=== PATIENT | male | born 1945 | race Caucasian/White ===

== ENCOUNTER 2016-10-06 09:49 | Inpatient (IN) | payer MEDICARE, OTHER ==
[~2016-10-06] VITALS: Ht 180.3 cm; Wt 116.6 kg
[~2016-10-06 09:49] MED LIST: ASPI-482 PO; FURO20TA3 PO; METO25TA9 PO; MULT1TAB52 PO; OLME20TA19 PO; OMEG300C PO; SIMV10TA3 PO; SPIR25TA3 PO; TAMS0.4C2 PO
[2016-10-06 12:07] VITALS: BP 155/79
[2016-10-06] MEDS ORDERED: BUTALB/APAP/CAFEIN 50/325/40MG TABLET. PO PRN (12:15)
[2016-10-06] MEDS ORDERED: MORPHINE SULFATE 4 MG/ML DISP.SYRIN. IV PRN (12:15)
[2016-10-06] MEDS ORDERED: SUMAtriptan SUCCINATE 25 MG TABLET PO PRN (12:15)
[2016-10-06] MEDS ORDERED: ASPIRIN ENTERIC COATED 81 MG TABLET.DR. PO SCH (12:30)
[2016-10-06] MEDS ORDERED: simvistatin (12:41)
[2016-10-06] MEDS ORDERED: GADOBUTROL 10 MMOL/10 ML VIAL IV ONE (14:30)
[2016-10-06] MEDS: LOSARTAN POTASSIUM 50 MG TABLET. PO SCH (14:52)
[2016-10-06] MEDS: METOPROLOL SUCC 24HR ER 25 MG TAB.ER.24H. PO SCH (14:52)
[2016-10-06] MEDS: SPIRONOLACTONE 25 MG TABLET PO SCH (14:53)
[2016-10-06] MEDS: TAMSULOSIN 0.4 MG CAP.ER.24H. PO SCH (14:53)
--- NOTE | 2016-10-06 14:54 | PDOC2 ---
NEUROLOGY CONSULT Date of Admission Date of Admission DATE: 10/06/16 TIME: 14:43 Reason for Consult Reason for Consult: Headache. CAD, s/p CABG. PR. HLD. 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 Obesity. RECOMMENDATIONS/PLAN: Brain MRI w/wo contrast. Continue ASA q am. Continue Zocor HS. Pain control. OT/PT. Discussed with his at bedside on 10/06/16. HISTORY OF THE PRESENT ILLNESS: 70-y-old male patient with Hx of old right cerebellar infarcts in 04/2015. He stated he had headaches at that time but headaches were resolved a few days later after his cerebellar stroke. He developed headaches again this time and not feeling well since last week per his . Due to increased headaches, he was hospitalized for further evaluation. PAST MEDICAL HISTORY: See above. PAST SURGERY HISTORY: S/P CABG ALLERGY: Reviewed. MEDICATIONS: Refer to MAR. FAMILY HISTORY: DM SOCIAL HISTORY: Denies current smoking, drinking, and illicit drug use. REVIEW OF SYSTEMS: Constitutional: No malnutrition, weight loss, night sweats, cachexia. Head: No traumatic brain or head injury. Skin: No edema, or rash. Ear: No infection, tinnitus. Eyes: No vision loss, color blindness Nose: No bleeding or purulent discharges. Neck: No injury, lymph note enlargement Cardiac: CAD, PR, s/p CABG, HLD. Pulmonary: URI GI: No melena, hematochezia Urinary/genital: UTI. Endocrinologic: No symptoms of gigantism, dwarf, hyperphasia, cousin face, craniofacial dysmorphism, polydactyly Skeletomuscular: generalized weakness Neurological: see HP. Psychiatric: Denies drug use/abuse. Otherwise, not [id number] review of systems. PHYSICAL EXAMINATION: General appearance is in subacute distress. HEENT: Normocephalic and nontraumatic. Eyes, nose, ears, and throat are unremarkable. Neck is supple. No lymphadenopathy. No crepitus. Cardiovascular: S1, S2, regular rate and rhythm. Pulmonary: Clear to auscultation bilaterally. Abdomen: Bowel sounds are positive. Extremities: No rash, lesions, or edema. No restriction of range of motion NEUROLOGICAL EXAMINATION: Alert. Oriented to time, place and person. PERRL. EOMI. CN: no focal findings. Muscle tone: within normal. Muscle strength: 5 DTR: 2- Plantar reflex: Flexor response bilaterally Gait: not examined in bed. Sensory exam: no abnormal findings. No cerebellar signs elicited. Current Medications Current Medications Current Medications Sumatriptan Succinate (Imitrex) 50 mg PRN Q2HR PRN PO MIGRAINE HEADACHE Last administered on 10/06/16t 12:56; Start 10/06/16 at 12:15 Acetaminophen/ Butalbital/ Caffeine (Fioricet) 1 tab PRN Q6HRS PRN PO MIGRAINE HEADACHE; Start 10/06/16 at 12:15 Morphine Sulfate 4 mg PRN Q2HR PRN IV PAIN; Start 10/06/16 at 12:15 Aspirin (Ecotrin) 81 mg DAILY PO ; Start 10/06/16 at 12:30 Metoprolol Succinate (Toprol Xl) 25 mg DAILY PO ; Start 10/06/16 at 12:30 Simvastatin (Zocor) 10 mg QHS PO ; Start 10/06/16 at 21:00 Spironolactone (Aldactone) 25 mg DAILY PO ; Start 10/06/16 at 12:30 Tamsulosin HCl (Flomax) 0.4 mg DAILY PO ; Start 10/06/16 at 12:30 Losartan Potassium (Cozaar) 50 mg DAILY PO ; Start 10/06/16 at 12:30 Gadobutrol (Gadavist) 9 mmol 1X ONCE IV Last administered on 10/06/16 14:25; Start 10/06/16 at 14:30; Stop 10/06/16 at 14:31; Status DC Active Scripts Active Reported [simvistatin] Fish Oil ([place]-3 Fatty Acids) 300 Mg Capsule 1,200 Mg PO DAILY Multivitamins (Multivitamin) 1 Each Tablet 1 Tab PO DAILY Tamsulosin Hcl 0.4 Mg Cap.er.24h 1 Cap PO DAILY Benicar (Olmesartan Medoxomil) 20 Mg Tablet 0.5 Tab PO DAILY Metoprolol Succinate ( Xl ) (Metoprolol Succinate) 25 Mg Tab.er.24h 1 Tab PO DAILY Furosemide 20 Mg Tablet 0.5 Tab PO DAILY Spironolactone 25 Mg Tablet 1 Tab PO DAILY Allergies Allergies: Coded Allergies: JEREMY Inhibitors (Verified Allergy, Unknown, 05/04/15) Uncoded Allergies: IV Contrast (Allergy, Unknown, 05/04/15) Vitals VITALS Vital Signs Date Time Temp Pulse Resp B/P (MAP) Pulse Ox O2 Delivery O2 Flow Rate FiO2 10/06/16 12:07 97.4 60 17 155/79 (104) 97 Room Air 97.4 ANYI DELGADO MD Oct 06, 2016 14:54
[2016-10-06 14:59] VITALS: BP 167/93
--- NOTE | 2016-10-06 15:25 | RAD ---
INDICATION: Stroke. Unsteady gait. Left-sided weakness. TECHNIQUE: Sagittal T1, axial T1, axial T2, axial FLAIR, axial T2 gradient, diffusion imaging with ADC map, postcontrast axial, and postcontrast coronal sequences are provided. 9 mL of intravenous Gadavist was administered without complication. Comparison is an MRI from May 05, 2015. There is also a CT from earlier today. FINDINGS: There is increased signal on diffusion imaging in the posterior medial right temporal lobe and occipital lobe with mild ADC correlate. Finding is concerning for an acute infarct measuring 2.8 x 1.1 cm in size. This is a change from prior exams. There is blooming artifact in this region, somewhat linear in orientation, more likely to be vascular than a hemorrhagic transformation given appearance on T2 and FLAIR imaging. This is probably a distal right posterior cerebral artery branch. There is an old right inferior cerebellar infarct. There is prominence of the ventricles and sulci. There is mild to moderate probable small vessel ischemic disease. There is no extra-axial fluid collection. There is no mass effect or midline shift. Cervicomedullary junction is unremarkable. Clival marrow signal is preserved. Central arterial flow voids are preserved. There is no pathologic enhancement. IMPRESSION: 1. Posterior right temporal / occipital acute infarct. 2. Linear blooming artifact in this region appears to correspond to a vessel on T2 and FLAIR imaging, presence of blooming artifact raises the possibility of thrombus within the distal right posterior cerebral artery as the cause of this infarct. 3. Brain parenchymal volume loss and probable small vessel ischemic disease. 4. Old right cerebellar infarct. This critical result of acute infarct was called to the patient's nurse, Lesley, at 1522 hours. Electronically signed by: Pepe Arce MD (10/06/2016 3:23 PM) [id number]
--- NOTE | 2016-10-06 15:40 | PDOC1 ---
History and Physical Date of Admission Date of Admission DATE: 10/06/16 TIME: 15:35 History of Present Illness History of Present Illness transfer from [place] [facility] this AM. pt seen 1300 here. Prior CVA, and today awoke with dizzyness and weakenss and vision loss in his left eye. He awoke with these problems, timeline unable to be established, out of t-PA window. CT there showed r occipital area concern for CVA, pt has prior CVA. Since this AM, he has worsening headache. Has hx of migrane, prior CVA possibly instigated by migrane, and now frontal throbbing headache. no nasuea, weakness is gone Past Medical History Cardiovascular: HTN CENTRAL NERVOUS SYSTEM: CVA Heme/Onc: No pertinent hx Hepatobiliary: No pertinent hx Psych: No pertinent hx Infectious disease: No pertinent hx Endocrine: Other (BPH) Social History Smoke: No ALCOHOL: heavy (at least 4/day) Drugs: None Current Medications Current Medications Current Medications Sumatriptan Succinate (Imitrex) 50 mg PRN Q2HR PRN PO MIGRAINE HEADACHE Last administered on 10/06/16 12:56; Start 10/06/16 at 12:15 Acetaminophen/ Butalbital/ Caffeine (Fioricet) 1 tab PRN Q6HRS PRN PO MIGRAINE HEADACHE; Start 10/06/16 at 12:15 Morphine Sulfate 4 mg PRN Q2HR PRN IV PAIN; Start 10/06/16 at 12:15 Aspirin (Ecotrin) 81 mg DAILY PO Last administered on 10/06/16 14:52; Start at 12:30; Stop 10/06/16 at 15:26; Status DC Metoprolol Succinate (Toprol Xl) 25 mg DAILY PO Last administered on 10/06/16 14:52; Start 10/06/16 at 12:30 Simvastatin (Zocor) 10 mg QHS PO ; Start 10/06/16 at 21:00 Spironolactone (Aldactone) 25 mg DAILY PO Last administered on 10/06/16 14:53 ; Start 10/06/16 at 12:30 Tamsulosin HCl (Flomax) 0.4 mg DAILY PO Last administered on 10/06/16 14:53; Start 10/06/16 at 12:30 Losartan Potassium (Cozaar) 50 mg DAILY PO Last administered on 10/06/16t 14:52 ; Start 10/06/16 at 12:30 Gadobutrol (Gadavist) 9 mmol 1X ONCE IV Last administered on 10/06/16 14:25; Start 10/06/16 at 14:30; Stop 10/06/16 at 14:31; Status DC Clopidogrel Bisulfate (Plavix) 75 mg DAILYWBKFT PO ; Start 10/06/16 at 17:00 Active Scripts Active Reported [simvistatin] Fish Oil ([place]-3 Fatty Acids) 300 Mg Capsule 1,200 Mg PO DAILY Multivitamins (Multivitamin) 1 Each Tablet 1 Tab PO DAILY Tamsulosin Hcl 0.4 Mg Cap.er.24h 1 Cap PO DAILY Benicar (Olmesartan Medoxomil) 20 Mg Tablet 0.5 Tab PO DAILY Metoprolol Succinate ( Xl ) (Metoprolol Succinate) 25 Mg Tab.er.24h 1 Tab PO DAILY Furosemide 20 Mg Tablet 0.5 Tab PO DAILY Spironolactone 25 Mg Tablet 1 Tab PO DAILY Allergies Allergies: Coded Allergies: JEREMY Inhibitors (Verified Allergy, Unknown, 05/04/15) Uncoded Allergies: IV Contrast (Allergy, Unknown, 05/04/15) ROS General: YES: Malaise, No: Chills, Night Sweats, Fatigue, Appetite, Other PSYCHOLOGICAL ROS: No: Anxiety, Behavioral Disorder, Concentration difficultie , Decreased libido, Depression, Disorientation, Hallucinations, Hostility, Irritablity, Memory difficulties, Mood Swings, Obsessive thoughts, Physical abuse, Sexual abuse, Sleep disturbances, Suicidal ideation, Other Eyes: No Blurry vision, No Decreased vision, No Double vision, No Dry eyes, No Excessive tearing, No Eye Pain, No Itchy Eyes, No Loss of vision, No Photophobia , No Scotomata, No Uses contacts, No Uses glasses, No Other HEENT: YES: Heacaches, No: Visual Changes, Hearing change, Nasal congestion, Nasal discharge, Oral lesions, Sinus pain, Sore Throat, Epistaxis, Sneezing, Snoring, Tinnitus, Vertigo, Vocal changes, Other Respiratory: No: Cough, Hemoptysis, Orthopnea, Pleuritic Pain, Shortness of breath, SOB with excertion, Sputum Changes, Stridor, Tachypnea, Wheezing, Other Cardiovascular: No Chest Pain, No Palpitations, No Orthopnea, No Paroxysmal Noc. Dyspnea, No Edema, No Lt Headedness, No Other Gastrointestinal: No Nausea, No Vomiting, No Abdominal Pain, No Diarrhea, No Constipation, No Melena, No Hematochezia, No Other Genitourinary: No Dysuria, No Frequency, No Incontinence, No Hematuria, No Retention, No Discharge, No Urgency, No Pain, No Flank Pain, No Other, No , No , No , No , No , No , No Musculoskeletal: Yes Muscular Weakness, No Gait Disturbance, No Joint Pain, No Joint Stiffness, No Joint Swelling, No Muscle Pain, No Pain In:, No Swelling In:, No Other Neurological: No Behavorial Changes, No Bowel/Bladder ControlChng, No Confusion , No Dizziness, No Gait Disturbance, No Headaches, No Impaired Coord/balance, No Memory Loss, No Numbness/Tingling, No Seizures, No Speech Problems, No Tremors, No Visual Changes, No Weakness, No Other Skin: No Dry Skin, No Eczema, No Hair Changes, No Lumps, No Mole Changes, No Mottling, No Nail Changes, No Pruritus, No Rash, No Skin Lesion Changes, No Other, No Acne Physical Exam General: Alert, Oriented X3, Cooperative HEENT: Atraumatic, PERRLA Lungs: Clear to auscultation Heart: S1S2, no murmurs Abdomen: Normal bowel sounds, Soft Extremities: No clubbing Skin: No rashes Neuro: Normal gait, Normal speech, Normal tone, Sensation intact Psych/Mental Status: Mental status NL, Mood NL Vitals Vitals Vital Signs Date Time Temp Pulse Resp B/P (MAP) Pulse Ox O2 Delivery O2 Flow Rate FiO2 10/06/16 14:59 97.4 60 18 167/93 (117) 98 Room Air 97.4 VTE Prophylaxis Ordered VTE Prophylaxis Devices: Yes VTE Pharmacological Prophylaxi: No Assessment/Plan Assessment/Plan headache, migrane, vision change and transient weakness, with prior CVA< poss. new CVA or TIA, neuro consult to follow, monitor secondary prevention obese, BMI 36 EtOH use, heavy, encouraged moderation admit JUANITO RUBIO MD Oct 06, 2016 15:40
[2016-10-06 16:08] LABS: HEMATOCRIT 42.5 % (39.0-53.0); HEMOGLOBIN 14.2 g/dL (13.0-17.5); RED BLOOD COUNT 4.48 x10^6/uL (4.30-5.70); RED CELL DISTRIBUTION WIDTH 12.9 % (11.5-14.5); WHITE BLOOD COUNT 4.3 x10^3/uL (4.0-11.0)
[2016-10-06 16:43] LABS: ALBUMIN 3.8 g/dL (3.4-5.0); ALBUMIN/GLOBULIN RATIO 1.2 (1.0-1.7); CREATININE 1.2 mg/dL (0.7-1.3); GFR 59.3; POTASSIUM 4.8 mmol/L (3.5-5.1); TOTAL BILIRUBIN 0.5 mg/dL (0.2-1.0)
--- NOTE | 2016-10-06 16:52 | RAD ---
Carotid ultrasound, 10/06/2016: History: CVA Duplex evaluation of the carotid arteries in neck was performed including grayscale, color-flow and spectral Doppler analysis. There is mild intimal thickening in the common carotid arteries with mild smooth plaquing at the carotid bifurcations. The plaques are partially calcified. The peak systolic velocity in the left internal carotid artery is 113 cm/s. The end-diastolic velocity at this level is 45 cm/s. The internal carotid to common carotid artery ratio is 1.4. The Doppler findings suggest narrowing in the 0-50% diameter range. The peak systolic velocity in the right internal carotid artery is 91 cm/s with an end-diastolic velocity of 38 cm/s. The internal carotid to common carotid artery ratio is 1.6. These Doppler findings suggest narrowing in the 0-50% diameter range. Antegrade flow is present in both vertebral arteries in the neck. IMPRESSION: Mild atherosclerotic plaquing at both carotid bifurcations with underlying luminal narrowing in the 0-50% diameter range bilaterally. Note: Stenosis calculations for CTA, MRA and conventional angiography are based upon determination of the distal ICA diameter in accordance with the NASCET methodology. Stenosis calculations for Doppler studies are derived from validated velocity criteria which are known to correlate with NASCET methodology of determining stenosis.
[2016-10-06] MEDS: CLOPIDOGREL BISULFATE 75 MG TABLET PO SCH (17:19)
[2016-10-06 19:00] VITALS: BP 141/73
--- NOTE | 2016-10-06 19:56 | RAD ---
MRA Brain History: CVA Technique: 3-D [id number] MR angiography was performed of the brain. Comparison: MRI brain exam the same day Contrast: None Findings: There is some motion degradation. Determination of any degree of stenosis is based on NASCET criteria. Both vertebral arteries constitute the basilar artery. There is visualization of segments of the bilateral PICAs and AICAs as well as superior cerebellar arteries. There is flow within a normal caliber anterior communicating artery. There is flow within bilateral anterior, middle, and posterior cerebral arteries. Flow is seen in the petrous, cavernous, and supraclinoid internal carotid arteries. Appearance of small focus of increased flow related enhancement near the left internal carotid artery bifurcation projecting posteriorly is probably accentuated by motion artifact rather than representing small aneurysm. There is no significant focal stenosis. Impression: 1. No significant intracranial stenosis is identified. 2. Appearance of small focus of increased flow related enhancement of the left internal carotid artery bifurcation may be accentuated by motion rather than representing small aneurysm. Electronically signed by: Sim Alvarez MD (10/06/2016 7:53 PM) [facility]
[2016-10-06] MEDS ORDERED: SIMVASTATIN 10 MG TABLET PO SCH (21:00)
[2016-10-06 22:33] VITALS: BP 149/77
[2016-10-07 03:00] VITALS: BP 123/71
[2016-10-07 06:27] LABS: CHOLESTEROL/HDL RATIO 3.5
[2016-10-07 07:00] VITALS: BP 138/72
[2016-10-07] MEDS: CLOPIDOGREL BISULFATE 75 MG TABLET PO SCH (08:51)
[2016-10-07] MEDS: TAMSULOSIN 0.4 MG CAP.ER.24H. PO SCH (08:52)
[2016-10-07] MEDS: SPIRONOLACTONE 25 MG TABLET PO SCH (08:52)
[2016-10-07] MEDS: LOSARTAN POTASSIUM 50 MG TABLET. PO SCH (08:52)
[2016-10-07] MEDS: METOPROLOL SUCC 24HR ER 25 MG TAB.ER.24H. PO SCH (08:54)
[2016-10-07] MEDS ORDERED: PANTOPRAZOLE 40 MG TABLET.DR. PO SCH (11:30)
[2016-10-07 11:41] VITALS: BP 131/80
[2016-10-07] MEDS ORDERED: CLOP75TA PO (12:30)
--- NOTE | 2016-10-07 12:31 | PDOC3 ---
Discharge Summary [facility] Date of Admission: Oct 06, 2016 Discharge Date: Oct 07, 2016 Admitting Diagnosis headache, migraine lost of left peripheral vision with acute right temporal/occipital stroke h/o RIGHT cerebellar cva h/o CAD post CABG HTN Morbid obesity alcoholism h/o GIB with plavix, no details sinus bradycardia with metoprolol BPH Problems: CONSULTS neuro Brief Hospital Course Mr. Moran is a 71 old M, h/o CVA, no neurologic deficit, was transferred from [facility] for left vision loss, it is peripheral vision loss, also headache. MRI brain showed acute right side temporal/occipital stroke. pt has no ext weakness. US carotid, angiogram ok. echo done, result pending. plavix restarted, which cause some GIB as per pt before, but pt cannot tell where was the bleeding. add protonix. dc later today if ok with neuro dc time 35min General: Alert, Oriented X3, Cooperative HEENT: Atraumatic, PERRLA Lungs: Clear to auscultation Heart: S1S2, no murmurs Abdomen: Normal bowel sounds, Soft Extremities: No clubbing Skin: No rashes Neuro: Normal gait, Normal speech, Normal tone, Sensation intact Psych/Mental Status: Mental status NL, Mood NL Problems: Disposition home CONDITION AT DISCHARGE: Stable Diet cardiac Scheduled Clopidogrel Bisulfate (Clopidogrel), 75 MG PO DAILYWBKFT Furosemide (Furosemide), 0.5 TAB PO DAILY, (Reported) Metoprolol Succinate (Metoprolol Succinate ( Xl )), 1 TAB PO DAILY, (Reported) Multivitamin (Multivitamins), 1 TAB PO DAILY, (Reported) Olmesartan Medoxomil (Benicar), 0.5 TAB PO DAILY, (Reported) [place]-3 Fatty Acids (Fish Oil), 1,200 MG PO DAILY, (Reported) Spironolactone (Spironolactone), 1 TAB PO DAILY, (Reported) Tamsulosin Hcl (Tamsulosin Hcl), 1 CAP PO DAILY, (Reported) Miscellaneous Medications [simvistatin], (Reported) Discontinued Medications Aspirin (Aspir 81), 1 TAB PO DAILY, (Reported) Simvastatin (Simvastatin), 1 TAB PO DAILY, (Reported) Follow Up fu with pcp and neuro in 2 weeks KEDAR MIRANDA MD Oct 07, 2016 12:31
[2016-10-07] MEDS ORDERED: PANT40TA5 PO (12:34)
--- NOTE | 2016-10-07 14:07 | PDOC ---
PROGRESS NOTES Assessment Assessment Acute/subacute right temporal and occipital lobe infarct. Headache. CAD, s/p CABG. SD. HLD. 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 Obesity. RECOMMENDATIONS/PLAN: Plavix 75 mg daily. Continue Zocor HS. Pain control. Weight reduction. OT/PT. Echo reports still pending. Discussed with his and son at bedside on 10/07/16. Brain MRI w/wo contrast: No large A occlusion. Brain MRI: See above. Carotid A US + Doppler: No high grade stenosis. HISTORY OF THE PRESENT ILLNESS: 70-y-old male patient with Hx of old right cerebellar infarcts in 04/2015. He stated he had headaches at that time but headaches were resolved a few days later after his cerebellar stroke. He developed headaches again this time and not feeling well since last week per his . Due to increased headaches, he was hospitalized for further evaluation. He stated he is doing fine on 10/07/16. He had GI bleeding on ASA and on Plavix also in the past. His previous GI bleeding was in 03/2015, 18 months ago. No bleeding events since. PAST MEDICAL HISTORY: See above. PAST SURGERY HISTORY: S/P CABG ALLERGY: Reviewed. MEDICATIONS: Refer to MAR. FAMILY HISTORY: DM SOCIAL HISTORY: Denies current smoking, drinking, and illicit drug use. REVIEW OF SYSTEMS: Constitutional: No malnutrition, weight loss, night sweats, cachexia. Head: No traumatic brain or head injury. Skin: No edema, or rash. Ear: No infection, tinnitus. Eyes: No vision loss, color blindness Nose: No bleeding or purulent discharges. Neck: No injury, lymph note enlargement Cardiac: CAD, SD, s/p CABG, HLD. Pulmonary: URI GI: No melena, hematochezia Urinary/genital: UTI. Endocrinologic: No symptoms of gigantism, dwarf, hyperphasia, cousin face, craniofacial dysmorphism, polydactyly Skeletomuscular: generalized weakness Neurological: see HP. Psychiatric: Denies drug use/abuse. Otherwise, not [id number] review of systems. PHYSICAL EXAMINATION: General appearance is in subacute distress. HEENT: Normocephalic and nontraumatic. Eyes, nose, ears, and throat are unremarkable. Neck is supple. No lymphadenopathy. No crepitus. Cardiovascular: S1, S2, regular rate and rhythm. Pulmonary: Clear to auscultation bilaterally. Abdomen: Bowel sounds are positive. Extremities: No rash, lesions, or edema. No restriction of range of motion NEUROLOGICAL EXAMINATION: Alert. Oriented to time, place and person. PERRL. EOMI. CN: no focal findings. Muscle tone: within normal. Muscle strength: 5 DTR: 2- Plantar reflex: Flexor response bilaterally Gait: near his baseline normal. Sensory exam: no abnormal findings. No cerebellar signs elicited. Objective Objective Vital Signs Date Time Temp Pulse Resp B/P (MAP) Pulse Ox O2 Delivery O2 Flow Rate FiO2 10/07/16 11:41 95.7 62 16 131/80 (97) 96 Room Air 95.7 Intake and Output 10/07/16 07:00 Intake Total 320 ml Balance 320 ml Intake Oral 320 ml # Voids 2 Vitals Signs Vitals VS - Last 72 Hours, by Label Date Time Temp Pulse Resp B/P (MAP) Pulse Ox O2 Delivery O2 Flow Rate FiO2 10/07/16 11:41 95.7 62 16 131/80 (97) 96 Room Air 95.7 10/07/16 08:52 62 138/72 10/07/16 08:00 Room Air 10/07/16 07:00 97.9 62 18 138/72 (94) 96 Room Air 97.9 10/07/16 03:00 98.2 71 18 123/71 (88) 93 Room Air 98.2 10/06/16 22:33 97.5 61 18 149/77 (101) 96 Room Air 97.5 10/06/16 19:00 98.1 62 16 141/73 (95) 94 Room Air 98.1 10/06/16 14:59 97.4 60 18 167/93 (117) 98 Room Air 97.4 10/06/16 14:52 60 155/79 10/06/16 14:52 60 155/79 10/06/16 12:07 97.4 60 17 155/79 (104) 97 Room Air 97.4 Laboratory Laboratory Laboratory Tests Test 10/06/16 15:50 10/07/16 05:30 White Blood Count 4.3 x10^3/uL (4.0-11.0) Red Blood Count 4.48 x10^6/uL (4.30-5.70) Hemoglobin 14.2 g/dL (13.0-17.5) Hematocrit 42.5 % (39.0-53.0) Mean Corpuscular Volume 95 fL (79-100) Mean Corpuscular Hemoglobin 32 pg (25-35) Mean Corpuscular Hemoglobin Concent 33 g/dL (31-37) Red Cell Distribution Width 12.9 % (11.5-14.5) Platelet Count 125 x10^3/uL (140-400) Sodium Level 137 mmol/L (136-145) Potassium Level 4.8 mmol/L (3.5-5.1) Chloride Level 101 mmol/L (98-107) Carbon Dioxide Level 28 mmol/L (21-32) Anion Gap 8 (6-14) Blood Urea Nitrogen 18 mg/dL (8-26) Creatinine 1.2 mg/dL (0.7-1.3) Estimated GFR (Cockcroft-Gault) 59.3 BUN/Creatinine Ratio 15 (6-20) Glucose Level 145 mg/dL (70-99) Calcium Level 9.0 mg/dL (8.5-10.1) Total Bilirubin 0.5 mg/dL (0.2-1.0) Aspartate Amino Transf (AST/SGOT) 33 U/L (15-37) Alanine Aminotransferase (ALT/SGPT) 52 U/L (16-63) Alkaline Phosphatase 56 U/L (46-116) Total Protein 7.0 g/dL (6.4-8.2) Albumin 3.8 g/dL (3.4-5.0) Albumin/Globulin Ratio 1.2 (1.0-1.7) Triglycerides Level 132 mg/dL (0-150) Cholesterol Level 166 mg/dL (0-200) LDL Cholesterol, Calculated 93 mg/dL (0-100) VLDL Cholesterol, Calculated 26 mg/dL (0-40) Non-HDL Cholesterol Calculated 119 mg/dL (0-129) HDL Cholesterol 47 mg/dL (40-60) Cholesterol/HDL Ratio 3.5 Medication Medications Current Medications Clopidogrel Bisulfate (Plavix) 75 mg DAILYWBKFT PO Last administered on 08:51; Start 10/06/16 at 17:00 Gadobutrol (Gadavist) 9 mmol 1X ONCE IV Last administered on 10/06/16 14:25; Start 10/06/16 at 14:30; Stop 8/17/17 at 14:31; Status DC Pantoprazole Sodium (Protonix) 40 mg DAILYAC PO Last administered on 10/07/16 11:56; Start 10/07/16 at 11:30 Simvastatin (Zocor) 10 mg QHS PO Last administered on 10/06/16 21:52; Start at 21:00 Comment Review of Relevant I have reviewed the following items kasandra (where applicable) has been applied. ANYI DELGADO MD Oct 07, 2016 14:07
[2016-10-07 14:56] VITALS: BP 120/72
--- NOTE | 2016-10-07 20:38 | CARD ---
APPROVED REPORT EXAM: Two-dimensional and M-mode echocardiogram with Doppler and color Doppler. Other Information Quality : Good INDICATION CVA/TIA 2D DIMENSIONS Left Atrium(2D)3.8 (1.6-4.0cm)IVSd1.0 (0.7-1.1cm) Aortic Root(2D)3.1 (2.0-3.7cm)LVDd6.0 (3.9-5.9cm) LVOT Diameter2.4 (1.8-2.4cm)PWd1.1 (0.7-1.1cm) LVDs3.5 (2.5-4.0cm)FS (%) 30.0 % SV128.0 mlLVEF(%)60.0 (>50%) Aortic Valve AoV Peak Diego.141.0cm/sAoV VTI31.1cm AO Peak GR.8.0mmHgLVOT Peak Diego.103.7cm/s AO Mean GR.4mmHgAVA (VMAX)3.25cm2 JAY (VTI)3.40cm2 Mitral Valve MV E Coztvvlu918.1cm/sMV DECEL AJVX680kw MV A Xicksuaz770.4cm/sE/A Ratio0.9 Tricuspid Valve TR P. Edzkfkgf869er/sRAP [id number] TR Peak Gr.68bsAmBEHY10irKe Pulmonary Vein S1 Qbodpxya12.3cm/sD2 Ahpoqdka78.3cm/s PVa [id number] LEFT VENTRICLE The Left Ventricle is mildly dilated. There is normal left ventricular wall thickness. The left ventr icular systolic function is normal and the ejection fraction is 55 to 60%. There is normal LV segment al wall motion. Transmitral Doppler flow pattern is Grade I-abnormal relaxation pattern. RIGHT VENTRICLE The right ventricle is normal size. The right ventricular systolic function is normal. ATRIA The left atrium size is normal. The right atrium size is normal. The interatrial septum is intact wit h no evidence for an atrial septal defect or patent foramen ovale as noted on 2-D or Doppler imaging. AORTIC VALVE The aortic valve is calcified but opens well. Doppler and Color Flow revealed no significant aortic r egurgitation. There is no significant aortic valvular stenosis. MITRAL VALVE The mitral valve is normal in structure and function. There is no evidence of mitral valve prolapse. There is no mitral valve stenosis. Doppler and Color Flow revealed no mitral valve regurgitation note d. TRICUSPID VALVE The tricuspid valve is normal in structure and function. Doppler and Color Flow revealed physiologica l tricuspid regurgitation. There is mild pulmonary hypertension. The PA pressure was estimated at 33 mmHg. There is no tricuspid valve stenosis. PULMONIC VALVE The pulmonary valve is normal in structure and function. Doppler and Color Flow revealed trace to mil d pulmonic valvular regurgitation. There is no pulmonic valvular stenosis. GREAT VESSELS The aortic root is normal in size. The ascending aorta is mildly dilated at 3.6 cm. The IVC is normal in size and collapses >50% with inspiration. PERICARDIAL EFFUSION There is no evidence of significant pericardial effusion. Critical Notification Critical Value: No <Conclusion> The Left Ventricle is mildly dilated. There is normal left ventricular wall thickness. The left ventricular systolic function is normal and the ejection fraction is 55 to 60%. There was a grade 1 diastolic dysfunction with an increase in the left atrial filling pressure. There is no pericardial effusion. There is no mitral stenosis or regurgitation. The left atrium is of normal size with no thrombus or tumor. The aortic valve is tricuspid. There is no aortic stenosis or regurgitation. Right ventricle is of a normal size with normal systolic function. There is mild pulmonary hypertension. The PA pressure was estimated at 33 mmHg There is mild pulmonic regurgitation. No intracardiac source for the patient's CVA was seen on this transthoracic echocardiogram.
== END 2016-10-07 17:52 | disposition home or self-care (01) | DRG 66 ==
LOC: 6 SOUTH 11:32
PROVIDERS: ADMIT Internal Medicine; ATTEND Internal Medicine
PROC: B246ZZZ Ultrasonography of Right and Left Heart (ICD-10-PCS; principal; 2016-10-07)
DX: I63.9 Cerebral infarction, unspecified (principal); R00.1 Bradycardia, unspecified; I34.0 Nonrheumatic mitral (valve) insufficiency; E66.01 Morbid (severe) obesity due to excess calories; I10 Essential (primary) hypertension; E78.5 Hyperlipidemia, unspecified; G43.909 Migraine, unspecified, not intractable, without status migrainosus; H54.62 Unqualified visual loss, left eye, normal vision right eye; N40.0 Benign prostatic hyperplasia without lower urinary tract symptoms; I25.10 Atherosclerotic heart disease of native coronary artery without angina pectoris; F10.20 Alcohol dependence, uncomplicated; Z68.36 Body mass index [BMI] 36.0-36.9, adult; Z79.02 Long term (current) use of antithrombotics/antiplatelets; Z95.1 Presence of aortocoronary bypass graft; Z88.8 Allergy status to other drugs, medicaments and biological substances; Z86.73 Personal history of transient ischemic attack (TIA), and cerebral infarction without residual deficits; Z83.3 Family history of diabetes mellitus
CPT/HCPCS: 36415; 70544; 70553; 80053; 80061; 85027; 93306; 93880; A9585; 92610